=== PATIENT | female | born 2000 | race Two or more races ===

== ENCOUNTER 2019-08-20 12:18 | Emergency (ER) | payer MEDICAID ==
[~2019-08-20] VITALS: Ht 154.9 cm; Wt 96.0 kg
[~2019-08-20 12:18] MED LIST: NO HOME MEDS; PSEU120T84 PO
[2019-08-20 13:04] LABS: BASOPHILS # (AUTO) 0.1 X10'3 (0-0.2); BASOPHILS % (AUTO) 0.9 % (0-1); EOSINOPHILS # (AUTO) 0.1 X10'3 (0-0.9); EOSINOPHILS % (AUTO) 1.1 % (0-6); HEMATOCRIT 43.4 % (35.0-45.0); HEMOGLOBIN 14.8 g/dl (12.0-16.0); LYMPHOCYTES # (AUTO) 2.7 X10'3 (1.1-4.8); LYMPHOCYTES % (AUTO) 31.6 % (21-51); MEAN CORPUSCULAR HEMOGLOBIN 28.9 PG (27.0-31.0); MEAN CORPUSCULAR VOLUME 85.1 FL (78-98); MEAN PLATELET VOLUME 7.3 FL (7.4-10.4); MONOCYTES # (AUTO) 0.5 X10'3 (0-0.9); MONOCYTES % (AUTO) 5.6 % (2-12); NEUTROPHILS # (AUTO) 5.3 X10'3 (1.8-7.7); NEUTROPHILS % (AUTO) 60.8 % (42-75); PLATELET COUNT 321 X10'3 (140-440); RED CELL DISTRIBUTION WIDTH 13.3 % (11.5-14.5); WHITE BLOOD COUNT 8.7 X10'3 (4.5-11.0)
[2019-08-20 13:19] LABS: ALANINE AMINOTRANSFERASE 87 U/L (12-78); ALBUMIN 3.7 G/DL (3.4-5.0); ALBUMIN/GLOBULIN RATIO 0.8 (1.1-1.5); ALKALINE PHOSPHATASE 78 IU/L (20-180); ANION GAP 8 (8-16); ASPARTATE AMINO TRANSFERASE 48 U/L (10-37); BILIRUBIN,TOTAL 0.3 MG/DL (0.1-1.0); BLOOD UREA NITROGEN 8 MG/DL (7-18); BUN/CREATININE RATIO 13.1 (6.6-38.0); CHLORIDE 104 MMOL/L (99-107); CREATININE 0.61 MG/DL (0.40-0.90); GLUCOSE 132 MG/DL (70-104); POTASSIUM 4.4 MMOL/L (3.5-5.1); SODIUM 140 MMOL/L (135-145); TOTAL CARBON DIOXIDE 28.5 MMOL/L (24-32); TOTAL PROTEIN 8.5 G/DL (6.4-8.2); eGFR > 90 ML/MIN
[2019-08-20 13:25] LABS: CLARITY,URINE SLIGHTLY CLOUDY (Clear); COLOR,URINE YELLOW (Yellow); GLUCOSE, URINE NEGATIVE (Neg); KETONES,URINE NEGATIVE (Neg); LEUKOCYTE ESTERASE ,URINE NEGATIVE (Neg); NITRITES, URINE NEGATIVE (Neg); OCCULT BLOOD,URINE NEGATIVE (Neg); PROTEIN,URINE NEGATIVE (Neg); URINE HCG NEGATIVE (NEG); UROBILINOGEN,URINE 0.2 E.U/dL (0.2-1.0)
[2019-08-20 13:26] LABS: UA COLLECTION TYPE CLN CATCH MIDSTREAM
[2019-08-20 13:40] LABS: BACTERIA,URINE 2+ /HPF (Neg); MUCUS STRANDS FEW /LPF (Neg); RBC,URINE NONE SEEN /HPF (0-2); SQUAMOUS EPITHELIAL CELL,UR MODERATE /LPF (FEW); WBC,URINE 0-4 /HPF (0-4)
[2019-08-20] MEDS ORDERED: ONDA4TAB12 PO (14:39)
[2019-08-20] MEDS ORDERED: ondansetron 4mg rapidly disintigrating tab PO ONE (14:40)
[2019-08-20 14:54] VITALS: BP 104/56
== END 2019-08-20 14:56 | disposition home or self-care (01) ==
LOC: ER 12:19
DX: R11.2 Nausea with vomiting, unspecified (principal); R19.7 Diarrhea, unspecified; R10.33 Periumbilical pain; E66.9 Obesity, unspecified
CPT/HCPCS: 36415; 80053; 81001; 81025; 85025; 99283

== ENCOUNTER 2019-09-18 12:30 | Emergency (ER) | payer MEDICAID ==
[~2019-09-18] VITALS: Ht 154.9 cm; Wt 97.7 kg
[~2019-09-18 12:30] MED LIST changes: +ONDA4TAB12 PO
[2019-09-18] MEDS ORDERED: ibuprofen tablet 400 MG TABLET PO ONE (14:45)
[2019-09-18 15:06] LABS: CLARITY,URINE SLIGHTLY CLOUDY (Clear); COLOR,URINE YELLOW (Yellow); GLUCOSE, URINE NEGATIVE (Neg); KETONES,URINE NEGATIVE (Neg); LEUKOCYTE ESTERASE ,URINE NEGATIVE (Neg); NITRITES, URINE NEGATIVE (Neg); OCCULT BLOOD,URINE TRACE-LYSED (Neg); PH,URINE 5.5 (4.8-8.0); PROTEIN,URINE NEGATIVE (Neg); UROBILINOGEN,URINE 0.2 E.U/dL (0.2-1.0)
[2019-09-18 15:07] LABS: URINE HCG NEGATIVE (NEG)
[2019-09-18 15:09] LABS: UA COLLECTION TYPE CLN CATCH MIDSTREAM
[2019-09-18 15:16] LABS: BACTERIA,URINE 4+ /HPF (Neg); MUCUS STRANDS FEW /LPF (Neg); RBC,URINE 0-2 /HPF (0-2); SQUAMOUS EPITHELIAL CELL,UR MANY /LPF (FEW); WBC,URINE 0-4 /HPF (0-4)
[2019-09-18 15:19] LABS: BASOPHILS # (AUTO) 0.1 X10'3 (0-0.2); EOSINOPHILS # (AUTO) 0.1 X10'3 (0-0.9); EOSINOPHILS % (AUTO) 0.9 % (0-6); HEMATOCRIT 42.7 % (35.0-45.0); HEMOGLOBIN 14.7 g/dl (12.0-16.0); LYMPHOCYTES # (AUTO) 2.8 X10'3 (1.1-4.8); LYMPHOCYTES % (AUTO) 27.6 % (21-51); MEAN CORPUSCULAR HEMOGLOBIN 28.9 PG (27.0-31.0); MEAN CORPUSCULAR HGB CONC 34.5 g/dL (33.0-36.5); MONOCYTES # (AUTO) 0.5 X10'3 (0-0.9); MONOCYTES % (AUTO) 4.9 % (2-12); NEUTROPHILS # (AUTO) 6.5 X10'3 (1.8-7.7); NEUTROPHILS % (AUTO) 65.6 % (42-75); PLATELET COUNT 333 X10'3 (140-440); RED BLOOD COUNT 5.09 X10'6 (4.20-5.60); RED CELL DISTRIBUTION WIDTH 12.9 % (11.5-14.5)
[2019-09-18 15:34] LABS: ALANINE AMINOTRANSFERASE 76 U/L (12-78); ALBUMIN 3.7 G/DL (3.4-5.0); ALBUMIN/GLOBULIN RATIO 0.7 (1.1-1.5); ALKALINE PHOSPHATASE 80 IU/L (20-180); ANION GAP 8 (8-16); ASPARTATE AMINO TRANSFERASE 38 U/L (10-37); BILIRUBIN,TOTAL 0.6 MG/DL (0.1-1.0); BLOOD UREA NITROGEN 9 MG/DL (7-18); BUN/CREATININE RATIO 13.6 (6.6-38.0); CHLORIDE 105 MMOL/L (99-107); CREATININE 0.66 MG/DL (0.40-0.90); GLUCOSE 87 MG/DL (70-104); SODIUM 139 MMOL/L (135-145); TOTAL PROTEIN 8.7 G/DL (6.4-8.2); eGFR > 90 ML/MIN
[2019-09-18 15:50] LABS: D-DIMER < 0.19 MG/L FEU (0-0.50)
[2019-09-18 16:12] VITALS: BP 116/76
== END 2019-09-18 16:14 | disposition home or self-care (01) ==
LOC: ER 12:31
DX: R53.1 Weakness (principal); B34.9 Viral infection, unspecified; R94.31 Abnormal electrocardiogram [ECG] [EKG]; R42 Dizziness and giddiness
CPT/HCPCS: 36415; 80053; 81001; 81025; 84484; 85025; 85379; 93005; 99284

== ENCOUNTER 2019-09-24 18:54 | Emergency (ER) | payer MEDICAID ==
[~2019-09-24] VITALS: Ht 154.9 cm; Wt 90.0 kg
[2019-09-24 19:48] LABS: BASOPHILS # (AUTO) 0.1 X10'3 (0-0.2); BASOPHILS % (AUTO) 0.6 % (0-1); EOSINOPHILS # (AUTO) 0.1 X10'3 (0-0.9); EOSINOPHILS % (AUTO) 0.9 % (0-6); HEMATOCRIT 44.3 % (35.0-45.0); HEMOGLOBIN 15.3 g/dl (12.0-16.0); LYMPHOCYTES # (AUTO) 3.2 X10'3 (1.1-4.8); LYMPHOCYTES % (AUTO) 28.7 % (21-51); MEAN CORPUSCULAR HEMOGLOBIN 28.8 PG (27.0-31.0); MEAN CORPUSCULAR HGB CONC 34.6 g/dL (33.0-36.5); MEAN CORPUSCULAR VOLUME 83.2 FL (78-98); MEAN PLATELET VOLUME 7.3 FL (7.4-10.4); MONOCYTES # (AUTO) 0.6 X10'3 (0-0.9); MONOCYTES % (AUTO) 5.2 % (2-12); NEUTROPHILS # (AUTO) 7.3 X10'3 (1.8-7.7); NEUTROPHILS % (AUTO) 64.6 % (42-75); PLATELET COUNT 368 X10'3 (140-440); RED BLOOD COUNT 5.32 X10'6 (4.20-5.60); RED CELL DISTRIBUTION WIDTH 12.9 % (11.5-14.5); WHITE BLOOD COUNT 11.3 X10'3 (4.5-11.0)
[2019-09-24 20:02] LABS: ALANINE AMINOTRANSFERASE 99 U/L (12-78); ALBUMIN 4.1 G/DL (3.4-5.0); ALBUMIN/GLOBULIN RATIO 0.8 (1.1-1.5); ALKALINE PHOSPHATASE 81 IU/L (20-180); ANION GAP 8 (8-16); ASPARTATE AMINO TRANSFERASE 54 U/L (10-37); BILIRUBIN,TOTAL 0.4 MG/DL (0.1-1.0); BLOOD UREA NITROGEN 11 MG/DL (7-18); BUN/CREATININE RATIO 14.7 (6.6-38.0); CALCIUM 9.7 MG/DL (8.5-10.1); CHLORIDE 104 MMOL/L (99-107); CREATININE 0.75 MG/DL (0.40-0.90); GLUCOSE 90 MG/DL (70-104); POTASSIUM 4.6 MMOL/L (3.5-5.1); SODIUM 141 MMOL/L (135-145); TOTAL PROTEIN 9.3 G/DL (6.4-8.2); eGFR > 90 ML/MIN
[2019-09-24] MEDS ORDERED: albuterol 2.5 MG/3 ML nebule NEB ONE (20:30)
[2019-09-24] MEDS ORDERED: NAPR-56 PO (20:34)
[2019-09-24 20:56] VITALS: BP 137/80
== END 2019-09-24 20:58 | disposition home or self-care (01) ==
LOC: ER 18:55
DX: J45.909 Unspecified asthma, uncomplicated (principal); R07.89 Other chest pain; Z79.899 Other long term (current) drug therapy
CPT/HCPCS: 36415; 71045; 80053; 84484; 85025; 93005; 94640; 94760; 99284

== ENCOUNTER 2019-10-19 16:03 | Emergency (ER) | payer MEDICAID ==
[~2019-10-19] VITALS: Ht 154.9 cm; Wt 86.0 kg
[~2019-10-19 16:03] MED LIST changes: +NAPR-56 PO
[2019-10-19] MEDS ORDERED: IBUP-1984 PO (20:41)
[2019-10-19 21:08] LABS: COLOR,URINE YELLOW (Yellow); GLUCOSE, URINE NEGATIVE (Neg); KETONES,URINE TRACE mg/dl (Neg); LEUKOCYTE ESTERASE ,URINE NEGATIVE (Neg); NITRITES, URINE NEGATIVE (Neg); OCCULT BLOOD,URINE NEGATIVE (Neg); PH,URINE 5.5 (4.8-8.0); PROTEIN,URINE NEGATIVE (Neg); UROBILINOGEN,URINE 0.2 E.U/dL (0.2-1.0)
[2019-10-19 21:21] LABS: CLARITY,URINE SLIGHTLY CLOUDY (Clear); UA COLLECTION TYPE CLN CATCH MIDSTREAM
[2019-10-19 21:22] LABS: BACTERIA,URINE 3+ /HPF (Neg); MUCUS STRANDS MANY /LPF (Neg); RBC,URINE NONE SEEN /HPF (0-2); SQUAMOUS EPITHELIAL CELL,UR MANY /LPF (FEW); WBC,URINE 0-4 /HPF (0-4)
[2019-10-19 21:23] LABS: URINE HCG NEGATIVE (NEG)
[2019-10-19 21:49] VITALS: BP 126/65
== END 2019-10-19 20:35 | disposition home or self-care (01) ==
LOC: ER 16:04
DX: M94.0 Chondrocostal junction syndrome [Tietze] (principal); Z79.899 Other long term (current) drug therapy
CPT/HCPCS: 81001; 81025; 93005; 99284

== ENCOUNTER 2020-01-24 18:48 | Emergency (ER) | payer MEDICAID, OTHER ==
[~2020-01-24] VITALS: Ht 154.9 cm; Wt 90.0 kg
[~2020-01-24 18:48] MED LIST changes: -NAPR-56 PO
[2020-01-24 18:49] VITALS: BP 132/82
[2020-01-24] MEDS ORDERED: IBUP-1984 PO (19:12)
== END 2020-01-24 19:30 | disposition home or self-care (01) ==
LOC: ER 18:48
DX: R07.81 Pleurodynia (principal); Z79.899 Other long term (current) drug therapy; W51.XXXA Accidental striking against or bumped into by another person, initial encounter; Y93.89 Activity, other specified; Y92.89 Other specified places as the place of occurrence of the external cause; Y99.8 Other external cause status
CPT/HCPCS: 99282

== ENCOUNTER 2020-05-31 11:23 | Day surgery (SDC) | payer MEDICAID ==
--- NOTE | 2020-05-27 10:16 | NUR ---
VERBAL COVID SCREEN DURING PHONE PRE-OP PER PT SHE HAS NO S/S OF COVID
[~2020-05-31] VITALS: Ht 154.9 cm; Wt 103.9 kg
[2020-05-31] VITALS (10 sets, daily range): BP systolic 102–133; BP diastolic 67–93
[~2020-05-31 11:23] MED LIST changes: +ACET-2615 PO; +IBUP-1984 PO; +MSC15T PO; -NO HOME MEDS; -ONDA4TAB12 PO; -PSEU120T84 PO; +SENN-263 PO; +ceFAZolin 2gm in dextrose, iso 50 ML IV ONE; +famotidine 20mg tablet PO ONE; +ringers solution, lacted 1,000 ML IV SCH; +vancomycin 1,500 MG in NS 300ml IV soln IV ONE
[2020-05-31 12:57] LABS: BASOPHILS # (AUTO) 0.1 X10'3 (0-0.2); BASOPHILS % (AUTO) 0.5 % (0-1); EOSINOPHILS # (AUTO) 0.1 X10'3 (0-0.9); EOSINOPHILS % (AUTO) 0.9 % (0-6); HEMATOCRIT 44.2 % (35.0-45.0); HEMOGLOBIN 14.7 g/dl (12.0-16.0); LYMPHOCYTES # (AUTO) 2.7 X10'3 (1.1-4.8); LYMPHOCYTES % (AUTO) 24.6 % (21-51); MEAN CORPUSCULAR HEMOGLOBIN 27.7 PG (27.0-31.0); MEAN CORPUSCULAR HGB CONC 33.3 g/dL (33.0-36.5); MEAN CORPUSCULAR VOLUME 83.2 FL (78-98); MEAN PLATELET VOLUME 7.2 FL (7.4-10.4); MONOCYTES # (AUTO) 0.6 X10'3 (0-0.9); MONOCYTES % (AUTO) 5.7 % (2-12); NEUTROPHILS # (AUTO) 7.4 X10'3 (1.8-7.7); NEUTROPHILS % (AUTO) 68.3 % (42-75); PLATELET COUNT 338 X10'3 (140-440); RED BLOOD COUNT 5.32 X10'6 (4.20-5.60); RED CELL DISTRIBUTION WIDTH 13.4 % (11.5-14.5); WHITE BLOOD COUNT 10.8 X10'3 (4.5-11.0)
[2020-05-31 13:07] LABS: HCG SERUM QL NEGATIVE
[2020-05-31] MEDS ORDERED: sevoflurane 250ml liquid IH ONE (13:08)
[2020-05-31 13:09] LABS: ALANINE AMINOTRANSFERASE 126 U/L (12-78); ALBUMIN 3.8 G/DL (3.4-5.0); ALBUMIN/GLOBULIN RATIO 0.7 (1.1-1.5); ALKALINE PHOSPHATASE 76 IU/L (20-180); ANION GAP 12 (8-16); ASPARTATE AMINO TRANSFERASE 83 U/L (10-37); BILIRUBIN,TOTAL 0.5 MG/DL (0.1-1.0); BLOOD UREA NITROGEN 7 MG/DL (7-18); BUN/CREATININE RATIO 11.9 (6.6-38.0); CALCIUM 9.4 MG/DL (8.5-10.1); CHLORIDE 103 MMOL/L (99-107); CREATININE 0.59 MG/DL (0.40-0.90); GLUCOSE 112 MG/DL (70-104); SODIUM 138 MMOL/L (135-145); TOTAL CARBON DIOXIDE 23.2 MMOL/L (24-32); TOTAL PROTEIN 9.1 G/DL (6.4-8.2); eGFR > 90 ML/MIN
[2020-05-31] MEDS ORDERED: fentaNYL/PF 50MCG/1 ML 2ML syringe ONE ×3 (13:12→14:06)
[2020-05-31] MEDS ORDERED: MIDAZolam 5mg/5ml vial ONE (13:34)
[2020-05-31] MEDS ORDERED: ketamine 50mg/5ml syringe ONE (14:06)
[2020-05-31] MEDS ORDERED: proCHLORperazine 10 MG/2 ml inj IV PRN (14:10)
[2020-05-31] MEDS ORDERED: ringers solution, lacted 1,000 ML IV SCH (14:10)
[2020-05-31] MEDS ORDERED: meperidine/PF 25mg/ml syringe IV PRN ×2 (14:10)
[2020-05-31] MEDS ORDERED: morphine 2 MG/ML inj. syringe IV PRN (14:10)
[2020-05-31] MEDS ORDERED: ondansetron/PF 4mg/2ml inj IV PRN (14:10)
[2020-05-31] MEDS ORDERED: morphine 4 MG/ML inj SYRINge IV PRN (14:10)
[2020-05-31] MEDS ORDERED: LIDOcaine 2% (20mg/ml) 5ml vial ONE (14:39)
[2020-05-31] MEDS ORDERED: propofol inj 20 ML IV ONE (14:39)
[2020-05-31] MEDS ORDERED: ondansetron/PF 4mg/2ml inj ONE (14:40)
[2020-05-31] MEDS ORDERED: dexamethasone sod phosphate 4mg/ml inj. ONE (14:40)
[2020-05-31] MEDS ORDERED: ROPIVAcaine 0.5% (5mg/ml) 30ml vial ONE (14:40)
--- NOTE | 2020-05-31 14:45 | NUR ---
Received from OR via , accompanied by Anesthesiologist DR ERVIN and report given by Anesthesiolgist.AWAKENS TO VOICE. VITALS STABLE. SPLINT DI. FINGERS WARM AND PINK.
[2020-05-31] MEDS ORDERED: acetaminophen 1,000mg/100ml IV 100 ML IV ONE (14:50)
[2020-05-31] MEDS: meperidine/PF 25mg/ml syringe IV PRN ×4 (14:54→15:38)
[2020-05-31] MEDS ORDERED: ketorolac trometh. 30mg/ml inj. IV ONE (15:35)
--- NOTE | 2020-05-31 16:35 | NUR ---
AWAKE AND ORIENTED. VITALS STABLE. SPLINT DI. STATES PAIN IMPROVING. HOME WITH HER SISTER AT THIS TIME.
== END 2020-05-31 16:35 | disposition home or self-care (01) ==
LOC: PAS 11:23
PROVIDERS: ATTEND Orthopaedic Surgery
DX: S52.251A Displaced comminuted fracture of shaft of ulna, right arm, initial encounter for closed fracture (principal); S52.351A Displaced comminuted fracture of shaft of radius, right arm, initial encounter for closed fracture; G89.18 Other acute postprocedural pain; Z72.89 Other problems related to lifestyle; E66.9 Obesity, unspecified; Z68.39 Body mass index [BMI] 39.0-39.9, adult; Z79.899 Other long term (current) drug therapy; W22.10XA Striking against or struck by unspecified automobile airbag, initial encounter; Y93.89 Activity, other specified; Y92.810 Car as the place of occurrence of the external cause; Y99.8 Other external cause status
CPT/HCPCS: 25575; 36415; 64417; 73090; 76000; 76942; 80053; 84703; 85025; A6222; C1713; J0131; J1100; J1885; J2001; J2175; J2250; J2405; J2704; J3010; J3370; J7040; J7120; A4618; A6449; A7000; J2795

== ENCOUNTER 2020-11-30 18:58 | Emergency (ER) | payer MEDICAID ==
[~2020-11-30] VITALS: Ht 154.9 cm; Wt 88.6 kg
[~2020-11-30 18:58] MED LIST changes: -ceFAZolin 2gm in dextrose, iso 50 ML IV ONE; -famotidine 20mg tablet PO ONE; -ringers solution, lacted 1,000 ML IV SCH; -vancomycin 1,500 MG in NS 300ml IV soln IV ONE
[2020-11-30 19:21] VITALS: BP 112/72
[2020-11-30] MEDS ORDERED: ALBU6.7H9 INH (19:32)
== END 2020-11-30 19:55 | disposition home or self-care (01) ==
LOC: ER 18:58
DX: J06.9 Acute upper respiratory infection, unspecified (principal); Z20.822 Contact with and (suspected) exposure to COVID-19; Z79.899 Other long term (current) drug therapy
CPT/HCPCS: 36415; 87635; 99283

== ENCOUNTER 2021-08-12 13:26 | Emergency (ER) | payer MEDICAID ==
[~2021-08-12] VITALS: Ht 157.5 cm; Wt 104.7 kg
[~2021-08-12 13:26] MED LIST changes: +ALBU6.7H9 INH
[2021-08-12 13:45] VITALS: BP 138/85
== END 2021-08-12 21:19 | disposition left against medical advice (07) ==
LOC: ER 13:27
DX: H92.02 Otalgia, left ear (principal); Z53.21 Procedure and treatment not carried out due to patient leaving prior to being seen by health care provider

== ENCOUNTER 2021-12-21 20:32 | Emergency (ER) | payer MEDICAID ==
[~2021-12-21] VITALS: Ht 162.6 cm; Wt 89.5 kg
[2021-12-21 20:35] VITALS: BP 122/77
[2021-12-21] MEDS ORDERED: ALBU8HFA PO (22:19)
== END 2021-12-21 22:34 | disposition home or self-care (01) ==
LOC: ER 20:33
DX: J20.9 Acute bronchitis, unspecified (principal); Z20.822 Contact with and (suspected) exposure to COVID-19; Z79.899 Other long term (current) drug therapy
CPT/HCPCS: 87635; 99283; C9803

== ENCOUNTER 2022-01-01 02:00 | Emergency (ER) | payer MEDICAID ==
[~2022-01-01] VITALS: Ht 157.5 cm; Wt 95.5 kg
[~2022-01-01 02:00] MED LIST changes: +ALBU8HFA PO
[2022-01-01] MEDS ORDERED: CIPR10DR LEFT EAR ×2 (07:17→12:27)
[2022-01-01 07:31] VITALS: BP 137/92
== END 2022-01-01 07:33 | disposition home or self-care (01) ==
LOC: ER 02:00
DX: H60.92 Unspecified otitis externa, left ear (principal); H92.02 Otalgia, left ear; Z79.2 Long term (current) use of antibiotics; Z79.899 Other long term (current) drug therapy
CPT/HCPCS: 99283

== ENCOUNTER 2022-03-04 20:31 | Emergency (ER) | payer MEDICAID ==
[~2022-03-04] VITALS: Ht 154.9 cm; Wt 99.5 kg
[~2022-03-04 20:31] MED LIST changes: -ALBU8HFA PO
[2022-03-04 21:10] LABS: URINE HCG NEGATIVE (NEG)
[2022-03-04] MEDS ORDERED: ondansetron/PF 4mg/2ml inj IV ONE (21:15)
[2022-03-04] MEDS ORDERED: normal saline 1000ML IV soln IVB ONE (21:15)
[2022-03-04] MEDS ORDERED: pantoprazole 40 MG vial IV ONE (21:15)
[2022-03-04 21:16] LABS: BASOPHILS # (AUTO) 0.1 X10'3 (0-0.2); BASOPHILS % (AUTO) 0.7 % (0-1); EOSINOPHILS # (AUTO) 0.1 X10'3 (0-0.9); HEMATOCRIT 39.9 % (35.0-45.0); HEMOGLOBIN 13.1 g/dl (12.0-16.0); LYMPHOCYTES # (AUTO) 3.8 X10'3 (1.1-4.8); LYMPHOCYTES % (AUTO) 32.5 % (21-51); MEAN CORPUSCULAR HEMOGLOBIN 24.4 PG (27.0-31.0); MEAN CORPUSCULAR HGB CONC 32.8 g/dL (33.0-36.5); MEAN CORPUSCULAR VOLUME 74.5 FL (78-98); MONOCYTES # (AUTO) 0.7 X10'3 (0-0.9); MONOCYTES % (AUTO) 6.3 % (2-12); NEUTROPHILS # (AUTO) 6.9 X10'3 (1.8-7.7); NEUTROPHILS % (AUTO) 59.5 % (42-75); PLATELET COUNT 452 X10'3 (140-440); RED BLOOD COUNT 5.35 X10'6 (4.20-5.60); RED CELL DISTRIBUTION WIDTH 15.5 % (11.5-14.5); WHITE BLOOD COUNT 11.6 X10'3 (4.5-11.0)
[2022-03-04 21:17] LABS: COLOR,URINE YELLOW (Yellow); GLUCOSE, URINE NEGATIVE (Neg); KETONES,URINE NEGATIVE (Neg); LEUKOCYTE ESTERASE ,URINE MODERATE (Neg); NITRITES, URINE NEGATIVE (Neg); OCCULT BLOOD,URINE MODERATE (Neg); PH,URINE 5.5 (4.8-8.0); PROTEIN,URINE NEGATIVE (Neg); UROBILINOGEN,URINE 0.2 E.U/dL (0.2-1.0)
[2022-03-04 21:24] LABS: ALANINE AMINOTRANSFERASE 72 U/L (12-78); ALBUMIN 3.6 G/DL (3.4-5.0); ALBUMIN/GLOBULIN RATIO 0.7 (1.1-1.5); ALKALINE PHOSPHATASE 81 IU/L (46-116); ANION GAP 11 (8-16); ASPARTATE AMINO TRANSFERASE 46 U/L (10-37); BILIRUBIN,TOTAL 0.4 MG/DL (0.1-1.0); BLOOD UREA NITROGEN 6 MG/DL (7-18); BUN/CREATININE RATIO 8.7 (6.6-38.0); CALCIUM 8.7 MG/DL (8.5-10.1); CHLORIDE 104 MMOL/L (99-107); CREATININE 0.69 MG/DL (0.40-0.90); GLUCOSE 85 MG/DL (70-104); LIPASE 104 U/L (73-393); POTASSIUM 3.7 MMOL/L (3.5-5.1); SODIUM 139 MMOL/L (135-145); TOTAL CARBON DIOXIDE 24.3 MMOL/L (24-32); TOTAL PROTEIN 8.7 G/DL (6.4-8.2); eGFR > 90 ML/MIN
[2022-03-04 21:28] LABS: CLARITY,URINE SLIGHTLY CLOUDY (Clear); UA COLLECTION TYPE CLN CATCH MIDSTREAM
[2022-03-04 21:29] LABS: BACTERIA,URINE FEW /HPF (Neg); SQUAMOUS EPITHELIAL CELL,UR MODERATE /LPF (FEW); WBC,URINE 20-30 /HPF (0-4)
[2022-03-04] MEDS ORDERED: pantoprazole 40MG/NS 100ML BAG 100 ML IV SCH (21:45)
[2022-03-04] MEDS ORDERED: PANT-47 PO (21:57)
[2022-03-04] MEDS ORDERED: CEPH-585 PO (21:57)
[2022-03-04 22:18] VITALS: BP 149/86
== END 2022-03-04 22:22 | disposition home or self-care (01) ==
LOC: ER 20:32
DX: N39.0 Urinary tract infection, site not specified (principal); Z79.899 Other long term (current) drug therapy
CPT/HCPCS: 36415; 80053; 81001; 81025; 83690; 85025; 87088; 96374; 96375; 99284; C9113; J2405; J7030

== ENCOUNTER 2022-03-19 13:35 | Emergency (ER) | payer MEDICAID ==
[~2022-03-19] VITALS: Ht 154.9 cm; Wt 93.2 kg
[~2022-03-19 13:35] MED LIST changes: +CEPH-585 PO; +PANT-47 PO
[2022-03-19 14:27] LABS: CLARITY,URINE CLOUDY (Clear); COLOR,URINE YELLOW (Yellow); GLUCOSE, URINE NEGATIVE (Neg); KETONES,URINE NEGATIVE (Neg); LEUKOCYTE ESTERASE ,URINE SMALL (Neg); NITRITES, URINE NEGATIVE (Neg); OCCULT BLOOD,URINE LARGE (Neg); PH,URINE 5.5 (4.8-8.0); PROTEIN,URINE NEGATIVE (Neg); URINE HCG NEGATIVE (NEG); UROBILINOGEN,URINE 0.2 E.U/dL (0.2-1.0)
[2022-03-19 14:28] LABS: BASOPHILS # (AUTO) 0.1 X10'3 (0-0.2); BASOPHILS % (AUTO) 0.7 % (0-1); EOSINOPHILS # (AUTO) 0.1 X10'3 (0-0.9); EOSINOPHILS % (AUTO) 0.4 % (0-6); HEMATOCRIT 40.1 % (35.0-45.0); HEMOGLOBIN 13.2 g/dl (12.0-16.0); LYMPHOCYTES # (AUTO) 1.9 X10'3 (1.1-4.8); LYMPHOCYTES % (AUTO) 14.4 % (21-51); MEAN CORPUSCULAR HEMOGLOBIN 24.6 PG (27.0-31.0); MEAN CORPUSCULAR VOLUME 74.4 FL (78-98); MEAN PLATELET VOLUME 6.9 FL (7.4-10.4); MONOCYTES # (AUTO) 0.6 X10'3 (0-0.9); MONOCYTES % (AUTO) 4.6 % (2-12); NEUTROPHILS # (AUTO) 10.6 X10'3 (1.8-7.7); NEUTROPHILS % (AUTO) 79.9 % (42-75); PLATELET COUNT 437 X10'3 (140-440); RED BLOOD COUNT 5.38 X10'6 (4.20-5.60); RED CELL DISTRIBUTION WIDTH 15.7 % (11.5-14.5); WHITE BLOOD COUNT 13.3 X10'3 (4.5-11.0)
[2022-03-19 14:28] LABS: UA COLLECTION TYPE CLN CATCH MIDSTREAM
[2022-03-19 14:38] LABS: SQUAMOUS EPITHELIAL CELL,UR MANY /LPF (FEW)
[2022-03-19 14:39] LABS: BACTERIA,URINE 2+ /HPF (Neg); MUCUS STRANDS MANY /LPF (Neg); RBC,URINE 0-2 /HPF (0-2)
--- NOTE | 2022-03-19 14:42 | NUR ---
urine rejected for culture
[2022-03-19 14:43] LABS: ALANINE AMINOTRANSFERASE 58 U/L (12-78); ALBUMIN 3.5 G/DL (3.4-5.0); ALBUMIN/GLOBULIN RATIO 0.7 (1.1-1.5); ALKALINE PHOSPHATASE 82 IU/L (46-116); ANION GAP 10 (8-16); ASPARTATE AMINO TRANSFERASE 34 U/L (10-37); BILIRUBIN,TOTAL 0.5 MG/DL (0.1-1.0); BLOOD UREA NITROGEN 8 MG/DL (7-18); BUN/CREATININE RATIO 10.1 (6.6-38.0); CALCIUM 9.1 MG/DL (8.5-10.1); CHLORIDE 106 MMOL/L (99-107); CREATININE 0.79 MG/DL (0.40-0.90); GLUCOSE 191 MG/DL (70-104); LIPASE 125 U/L (73-393); SODIUM 142 MMOL/L (135-145); TOTAL CARBON DIOXIDE 25.8 MMOL/L (24-32); TOTAL PROTEIN 8.7 G/DL (6.4-8.2); eGFR > 90 ML/MIN
[2022-03-19] MEDS ORDERED: famotidine 20mg tablet PO ONE (20:30)
[2022-03-19] MEDS ORDERED: mag hydrox/Alum hydrox/simeth 30ml oral suspension PO ONE (20:30)
[2022-03-19] MEDS ORDERED: sulfamethoxazole/trimethoprim DS (800/160mg) tablet PO ONE (20:30)
[2022-03-19] MEDS ORDERED: LIDOcaine Viscous 15ml cup MM ONE (20:30)
[2022-03-19] MEDS ORDERED: FAMO40TA58 PO (22:21)
[2022-03-19] MEDS ORDERED: SULF1TAB49 PO (22:21)
[2022-03-19 22:29] VITALS: BP 123/89
== END 2022-03-19 22:31 | disposition home or self-care (01) ==
LOC: ER 13:36
DX: N39.0 Urinary tract infection, site not specified (principal); R10.30 Lower abdominal pain, unspecified; R07.89 Other chest pain; R10.12 Left upper quadrant pain; R10.13 Epigastric pain; Z79.2 Long term (current) use of antibiotics; Z79.899 Other long term (current) drug therapy
CPT/HCPCS: 36415; 71046; 80053; 81001; 81025; 83690; 84484; 85025; 93005; 99285

== ENCOUNTER 2022-05-28 17:51 | Emergency (ER) | payer MEDICAID ==
[~2022-05-28] VITALS: Ht 154.9 cm; Wt 98.2 kg
[~2022-05-28 17:51] MED LIST changes: +ALBU6.7H14 INH; -ALBU6.7H9 INH; +FAMO40TA58 PO
[2022-05-28] MEDS ORDERED: acetaminophen 325mg tablet PO ONE (19:55)
[2022-05-28] MEDS ORDERED: ibuprofen tablet 400 MG TABLET PO ONE (19:55)
[2022-05-28 20:11] LABS: HEMOGLOBIN 12.3 g/dl (12.0-16.0)
[2022-05-28 20:13] LABS: BASOPHILS # (AUTO) 0.1 X10'3 (0-0.2); BASOPHILS % (AUTO) 0.7 % (0-1); EOSINOPHILS # (AUTO) 0.1 X10'3 (0-0.9); EOSINOPHILS % (AUTO) 0.9 % (0-6); HEMATOCRIT 37.6 % (35.0-45.0); LYMPHOCYTES # (AUTO) 2.3 X10'3 (1.1-4.8); LYMPHOCYTES % (AUTO) 22.9 % (21-51); MEAN CORPUSCULAR HEMOGLOBIN 24.2 PG (27.0-31.0); MEAN CORPUSCULAR HGB CONC 32.8 g/dL (33.0-36.5); MEAN CORPUSCULAR VOLUME 73.7 FL (78-98); MEAN PLATELET VOLUME 6.6 FL (7.4-10.4); MONOCYTES # (AUTO) 0.6 X10'3 (0-0.9); MONOCYTES % (AUTO) 5.8 % (2-12); NEUTROPHILS # (AUTO) 6.9 X10'3 (1.8-7.7); NEUTROPHILS % (AUTO) 69.7 % (42-75); PLATELET COUNT 433 X10'3 (140-440); RED CELL DISTRIBUTION WIDTH 15.4 % (11.5-14.5); WHITE BLOOD COUNT 9.9 X10'3 (4.5-11.0)
[2022-05-28 20:18] LABS: URINE HCG NEGATIVE (NEG)
[2022-05-28 20:19] LABS: CLARITY,URINE SLIGHTLY CLOUDY (Clear); COLOR,URINE YELLOW (Yellow); GLUCOSE, URINE NEGATIVE (Neg); KETONES,URINE TRACE mg/dl (Neg); LEUKOCYTE ESTERASE ,URINE LARGE (Neg); NITRITES, URINE NEGATIVE (Neg); OCCULT BLOOD,URINE TRACE-INTACT (Neg); PROTEIN,URINE NEGATIVE (Neg); UROBILINOGEN,URINE 0.2 E.U/dL (0.2-1.0)
[2022-05-28 20:23] LABS: UA COLLECTION TYPE CLN CATCH MIDSTREAM
[2022-05-28 20:25] LABS: ALANINE AMINOTRANSFERASE 71 U/L (12-78); ALBUMIN 3.5 G/DL (3.4-5.0); ALBUMIN/GLOBULIN RATIO 0.7 (1.1-1.5); ALKALINE PHOSPHATASE 85 IU/L (46-116); ANION GAP 10 (8-16); ASPARTATE AMINO TRANSFERASE 43 U/L (10-37); BILIRUBIN,TOTAL 0.5 MG/DL (0.1-1.0); BLOOD UREA NITROGEN 6 MG/DL (7-18); BUN/CREATININE RATIO 9.1 (6.6-38.0); CALCIUM 8.9 MG/DL (8.5-10.1); CHLORIDE 102 MMOL/L (99-107); CREATININE 0.66 MG/DL (0.40-0.90); GLUCOSE 81 MG/DL (70-104); LIPASE 92 U/L (73-393); SODIUM 140 MMOL/L (135-145); TOTAL CARBON DIOXIDE 27.6 MMOL/L (24-32); TOTAL PROTEIN 8.7 G/DL (6.4-8.2); eGFR > 90 ML/MIN
[2022-05-28 20:26] LABS: BACTERIA,URINE 2+ /HPF (Neg); RBC,URINE 0-2 /HPF (0-2); SQUAMOUS EPITHELIAL CELL,UR MANY /LPF (FEW)
[2022-05-28] MEDS ORDERED: ciprofloxacin 250mg tablet PO ONE (20:45)
[2022-05-28] MEDS ORDERED: CIPR-202 PO (20:45)
[2022-05-28 21:23] VITALS: BP 122/74
== END 2022-05-28 21:24 | disposition home or self-care (01) ==
LOC: ER 17:51
DX: N39.0 Urinary tract infection, site not specified (principal); Z79.899 Other long term (current) drug therapy; Z79.2 Long term (current) use of antibiotics
CPT/HCPCS: 36415; 80053; 81001; 81025; 83690; 85025; 99284

== ENCOUNTER 2023-02-28 22:13 | Emergency (ER) | payer MEDICAID ==
[~2023-02-28] VITALS: Ht 154.9 cm; Wt 84.1 kg
[2023-02-28 22:44] LABS: BASOPHILS # (AUTO) 0.1 X10'3 (0-0.2); BASOPHILS % (AUTO) 0.8 % (0-1); EOSINOPHILS # (AUTO) 0.2 X10'3 (0-0.9); EOSINOPHILS % (AUTO) 1.2 % (0-6); HEMATOCRIT 40.7 % (35.0-45.0); HEMOGLOBIN 13.5 g/dl (12.0-16.0); LYMPHOCYTES # (AUTO) 3.9 X10'3 (1.1-4.8); LYMPHOCYTES % (AUTO) 31.5 % (21-51); MEAN CORPUSCULAR HEMOGLOBIN 25.7 PG (27.0-31.0); MEAN CORPUSCULAR HGB CONC 33.1 g/dL (33.0-36.5); MEAN CORPUSCULAR VOLUME 77.6 FL (78-98); MEAN PLATELET VOLUME 6.8 FL (7.4-10.4); MONOCYTES # (AUTO) 0.8 X10'3 (0-0.9); MONOCYTES % (AUTO) 6.5 % (2-12); NEUTROPHILS # (AUTO) 7.5 X10'3 (1.8-7.7); PLATELET COUNT 439 X10'3 (140-440); RED BLOOD COUNT 5.24 X10'6 (4.20-5.60); RED CELL DISTRIBUTION WIDTH 14.3 % (11.5-14.5); WHITE BLOOD COUNT 12.4 X10'3 (4.5-11.0)
[2023-02-28 22:55] LABS: ALANINE AMINOTRANSFERASE 56 U/L (12-78); ALBUMIN 3.7 G/DL (3.4-5.0); ALBUMIN/GLOBULIN RATIO 0.7 (1.1-1.5); ALKALINE PHOSPHATASE 91 IU/L (46-116); ANION GAP 9 (8-16); ASPARTATE AMINO TRANSFERASE 31 U/L (10-37); BILIRUBIN,TOTAL 0.3 MG/DL (0.1-1.0); BLOOD UREA NITROGEN 10 MG/DL (7-18); BUN/CREATININE RATIO 13.2 (10.0-20.0); CALCIUM 9.4 MG/DL (8.5-10.1); CHLORIDE 104 MMOL/L (99-107); CREATININE 0.76 MG/DL (0.40-0.90); GLUCOSE 119 MG/DL (70-104); LIPASE 156 U/L (73-393); POTASSIUM 3.9 MMOL/L (3.5-5.1); SODIUM 140 MMOL/L (135-145); TOTAL CARBON DIOXIDE 27.2 MMOL/L (24-32); TOTAL PROTEIN 8.9 G/DL (6.4-8.2); eGFR > 90 ML/MIN
[2023-02-28] MEDS ORDERED: NO HOME MEDS (22:56)
[2023-02-28] MEDS ORDERED: acetaminophen 325mg tablet PO ONE (23:30)
[2023-02-28] MEDS ORDERED: ibuprofen tablet 400 MG TABLET PO ONE (23:30)
[2023-02-28] MEDS ORDERED: ondansetron 4mg rapidly disintigrating tab PO ONE (23:30)
[2023-03-01] LABS: CLARITY,URINE SLIGHTLY CLOUDY (Clear); COLOR,URINE YELLOW (Yellow); GLUCOSE, URINE NEGATIVE (Neg); KETONES,URINE NEGATIVE (Neg); LEUKOCYTE ESTERASE ,URINE SMALL (Neg); NITRITES, URINE NEGATIVE (Neg); OCCULT BLOOD,URINE SMALL (Neg); PROTEIN,URINE NEGATIVE (Neg); URINE HCG NEGATIVE (NEG); UROBILINOGEN,URINE 0.2 E.U/dL (0.2-1.0)
[2023-03-01 00:04] LABS: UA COLLECTION TYPE CLN CATCH MIDSTREAM
[2023-03-01 00:06] LABS: WBC,URINE 30-50 /HPF (0-4)
[2023-03-01 00:08] LABS: BACTERIA,URINE 2+ /HPF (Neg); SQUAMOUS EPITHELIAL CELL,UR MANY /LPF (FEW)
[2023-03-01] MEDS ORDERED: CEPH250T PO (00:49)
[2023-03-01] MEDS ORDERED: cephalexin 250mg capsule PO ONE (00:50)
[2023-03-01 01:06] VITALS: BP 127/88
== END 2023-03-01 01:07 | disposition home or self-care (01) ==
LOC: ER 22:13
DX: N39.0 Urinary tract infection, site not specified (principal); Z79.899 Other long term (current) drug therapy
CPT/HCPCS: 36415; 80053; 81001; 81025; 83690; 84145; 85025; 99284; J7030; 81003

== ENCOUNTER 2025-03-15 16:08 | Emergency (ER) | payer MEDICAID ==
[~2025-03-15] VITALS: Ht 154.9 cm; Wt 93.2 kg
[~2025-03-15 16:08] MED LIST changes: -ACET-2615 PO; -ALBU6.7H14 INH; -CEPH-585 PO; -FAMO40TA58 PO; -IBUP-1984 PO; -MSC15T PO; +NO HOME MEDS; -PANT-47 PO; -SENN-263 PO
--- NOTE | 2025-03-15 18:15 | Physician Documentation ---
History of Present Illness ~ Chief Complaint: Sore Throat Stated Complaint: LUMP ON SIDE OF NECK/PUKE WITH SMALL BLOOD CLOTS Time Seen by MD: 17:56 Primary Medical Doctor: [facility] MD Persaud [facility] This is a 24-year-old female who presents with three days of worsening right- sided facial neck along with intermittent episodes of vomiting, patient reports an area of swelling in her right neck that is been present for the last two weeks, patient additionally reports left-sided neck pain developing today. Patient reports no fever, chills, or other systemic symptoms. Patient reports streaks of blood in vomit today. Patient reports no abdominal pain or diarrhea. Medication Reconciliation Allergies: Coded Allergies: No Known Allergies (Unverified , 01/01/22) Scheduled PRN ONDANSETRON ODT 4mg tablet (Ondansetron Odt), 1 TAB PO Q6H PRN PRN for nausea/vomiting Miscellaneous Medications Home Med List (No Home Medications), (Reported) Past Medical History Past Medical History: UTI Past Surgical History: no surgical history Alcohol Use: None Drug Use: none Lives with: Family Lives In: Home Occupation: student Review of Systems ROS Neck pain and swelling, and vomiting as stated above in the HPI, otherwise all systems are reviewed and negative. Physical Exam Vital Signs: Temperature: 98.4, Source: Oral, Heart Rate: 97, Respiratory Rate: 18, BP: 114/73, Pulse Oximetry: 99, Weight: 93.180 Oxygen Flow Rate: 0 Physical Exam VITALS: Reviewed and as above. GENERAL: Alert, nontoxic appearing, no apparent distress. HEENT: Right-sided cervical lymphadenopathy with a proximally 2 cm x 2 center mobile mass, tenderness to left neck without palpable lymph nodes, no facial swelling or erythema, PERRLA, EOMI, bilateral auditory canals clear nonerythematous, bilateral TMs clear nonbulging with normal light reflex RESPIRATORY: No increased work of breathing, no respiratory distress, speaking in full clear sentences, clear lung sounds in all anne CV: Regular rate and rhythm no murmur GI: Soft, nontender, no rebound, no guarding, bowel sounds present Progress Results/Orders Results/Orders Orders - DAKOTA MANNINGP Ct Neck Soft Tissues (03/15/25 21:00) Completed Orders - DAKOTA MANNING Ct Neck Soft Tissues (03/15/25 21:00) Iohexol 300mg/Ml 100ml Inj. (Omnipaque-3 (03/15/25 20:25) Ketorolac Trometh 15mg/Ml Vial (Toradol (03/15/25 23:10) Medications Received in ER Medications (Trade) Dose Ordered Sig/Mc Route PRN Reason Start Time Stop Time Status Last Admin Dose Admin (Toradol injection) 15 mg ONCE ONCE IM 03/15/25 23:10 03/15/25 23:11 DC 03/15/25 23:31 15 MG Vital Signs 03/15/25 03/15/25 03/15/25 03/15/25 16:20 19:52 19:54 23:31 Temp 98.4 98.4 Pulse 97 90 Resp 18 12 12 16 B/P (MAP) 114/73 123/63 (83) Pulse Ox 99 100 O2 Flow Rate 0 0 Laboratory Tests Test 03/15/25 17:58 03/15/25 18:06 White Blood Count 9.5 Red Blood Count 5.05 Hemoglobin 11.3 L Hematocrit 34.5 L Mean Corpuscular Volume 68.3 L Mean Corpuscular Hemoglobin 22.3 L Mean Corpuscular Hemoglobin Concent 32.6 L Red Cell Distribution Width 17.7 H Platelet Count 435 Mean Platelet Volume 6.7 L Neutrophils (%) (Auto) 68.0 Lymphocytes (%) (Auto) 24.6 Monocytes (%) (Auto) 5.7 Eosinophils (%) (Auto) 1.1 Basophils (%) (Auto) 0.6 Neutrophils # (Auto) 6.5 Lymphocytes # (Auto) 2.3 Monocytes # (Auto) 0.5 Eosinophils # (Auto) 0.1 Basophils # (Auto) 0.1 CBC Comment Platelet Estimate Normal Red Blood Cell Morphology Perf Basophilic Stippling Anisocytosis Few Microcytosis 1+ Sodium Level 142 Potassium Level 3.7 Chloride Level 107 Carbon Dioxide Level 24.2 Anion Gap 11 Blood Urea Nitrogen 6 L Creatinine 0.66 Estimated GFR/1.73 m2 > 90 BUN/Creatinine Ratio 9.1 L Glucose Level 94 Calcium Level 8.7 Magnesium Level 2.0 Albumin 3.3 L Chemistry Comments Urine Specimen Description Cln catch midstream Urine Color Yellow Urine Clarity Clear Urine pH 6.0 Urine Specific Jeffrey 1.025 Urine Protein Negative Urine Glucose (UA) Negative Urine Ketones Negative Urine Occult Blood Moderate H Urine Nitrite Negative Urine Bilirubin Negative Urine Urobilinogen 0.2 Urine Leukocyte Esterase Negative Urine RBC 3-10 Urine WBC 0-4 Urine Squamous Epithelial Cells Many Urine Bacteria 1+ Urine Mucus Many Urine Culture Indicated Not ind Volume Urine Centrifuged 10 ml Urine HCG, Qualitative Negative Urine Comment EKG/XRAY/CT/US/VASC/MRI CT : Impression COMPUTERIZED TOMOGRAPHY OF THE NECK WITH INTRAVENOUS CONTRAST CLINICAL HISTORY: Mass to right neck. Sore throat. Occasional vomiting. Right neck swelling present for 2 weeks. COMPARISON: None TECHNIQUE: The exam was performed on a multidetector scanner. Thin section spiral scans were acquired from the external auditory canals to the thoracic inlet during the bolus intravenous administration of contrast material. 2-D coronal and sagittal reformatted images were provided. Automated exposure control was used. LABS: Current laboratory values provided were reviewed or point of care testing was performed to verify the patient meets current departmental guidelines for contrast media administration per protocol. CONTRAST ADMINISTERED: 100 mL omnipaque 300, intravenously. MEDICATIONS: The patient's medication list was reviewed. RADIATION DOSE: CTDI: 18 mGy DLP: 440 mGy-cm FINDINGS: The airway is symmetric and patent. There is a 1.6 x 2.3 x 2.3 cm lobulated, heterogeneously enhancing solid mass in the superficial lobe of the right parotid gland. There are a few scattered subcentimeter lymph nodes in the anterior cervical chain. There are somewhat prominent bilateral level 2 lymph nodes, the largest of which measures 10 mm in short axis adjacent to the right carotid bifurcation. Visualized posterior fossa is unremarkable. Visualized thoracic apices are clear. The thyroid gland enhances homogeneously and appears grossly normal. No focal bony abnormality is identified. IMPRESSION: There is a 2.3 cm lobulated, heterogeneously enhancing solid mass in the superficial lobe of the right parotid gland. 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 Contrast-enhanced MRI of the face and mustapha gical consultation are recommended. Electronically Signed by:TEOFILO PEREZ MD Date & Time: 03/15/252210 Dictated by: TEOFILO PEREZ MD Dictation date and time: 03/15/252210 Ultrasound : Impression FOCUSED ULTRASOUND NECK SOFT TISSUES: REASON FOR EXAM: neck mass. Bilateral neck swelling. TECHNIQUE: Real-time sector scans in the transverse and longitudinal planes were obtained through both sides of the anterior neck. FINDINGS: Within the soft tissues of the right neck, deep to the strap muscles, there is a 2.1 x 1.6 by 2.1 cm lobulated hypoechoic mass with internal vascularity. There is a 1.0 by 1.0 by 0.7 cm morphologically normal lymph node in the left neck. The visualized portions of the thyroid gland are grossly unremarkable. IMPRESSION: Right neck mass, possibly lymphadenopathy. Correlate clinically. If clinically indicated, CT of the neck soft tissues with contrast is recommended. Electronically Signed by:TEOFILO PEREZ MD Date & Time: 03/15/251953 Dictated by: TEOFILO PEREZ MD Dictation date and time: 03/15/251953 Medical Decision Making Findings This 24-year-old female presented with pain and swelling to bilateral neck along with some episodes of vomiting over the last three days, ultrasound of the neck demonstrated vascular mass to the right neck and lymphadenopathy to the left nec k, mass to right neck was further explored with CT with contrast demonstrating lobulated mass to the parotid gland that is most consistent with pleomorphic adenoma, which will require MRI and surgical follow up. Patient is otherwise well-appearing with benign physical exam including no evidence of airway compromise and stable vital signs. Lab work without evidence of systemic infection, or metabolic or electrolyte disturbance. Patient is appropriate for outpatient follow up for MRI and surgical referral, patient has been directed to follow up 1st thing in the morning with primary care provider to make referrals to MRI and surgical consultation. Patient provided return to care precautions. Patient verbalized understanding of home care instructions, follow up instructions, and return to care precautions. Ear Diff. Dx: Considerations: Include: Foreign body, Otitis externa, Otitis media Tooth Diff. Dx: Considerations: Include: Facial cellulitis, Periapical abscess, Other (Pranav's angina) Throat Diff Dx: Considerations: Include: Pranav's angina Additional Comment Abscess, sepsis, infected lymph node, malignancy, salivary stone, parotitis Departure Disposition: 01 HOME / SELF CARE / HOMELESS Impression: Primary Impression: Mass of parotid gland Additional Impressions: Lymphadenopathy, anterior cervical Vomiting Qualified Codes: R11.2 - Nausea with vomiting, unspecified Condition: Improved Discharge Instructions: Lymphadenopathy Additional Instructions: Please use the prescribed Zofran if your vomiting should reoccur. As we discussed you will require prompt outpatient follow up for the mass in your parotid gland (salivary gland) to your right face, please contact your primary care provider 1st thing tomorrow morning letting them know that you were seen in the emergency department after receiving a CT recommending MRI and surgical follow up. Please return to the emergency department for any new or worsening concerning symptoms. You may use ibuprofen and or Tylenol as needed for pain as directed by [id number] packaging, do not take ibuprofen, naproxen, or other NSAIDs for the next 12 hours as you received a Toradol injection tonight. Take ibuprofen with food to avoid stomach upset. Referrals: NO PRIMARY CARE PROVIDER (PCP) Prescriptions ONDANSETRON ODT 4mg tablet (ONDANSETRON ODT) 4 Mg Tab.rapdis 1 TAB PO Q6H PRN PRN for nausea/vomiting for 4 Days, #16 TAB 0 Refills Prov: DAKOTA MANNING 03/15/25 Education Educated: Patient Educated regarding: diagnosis, treatment, prognosis, need for follow up Signature Scribe Signature: No scribe Attestation: The note accurately reflects work and decisions made by me.ANGI Goetz 03/16/25 01:05 DAKOTA MANNING Mar 15, 2025 18:15
[2025-03-15 18:22] LABS: ALBUMIN 3.3 G/DL (3.4-5.0); ANION GAP 11 (8-16); BLOOD UREA NITROGEN 6 MG/DL (7-18); BUN/CREATININE RATIO 9.1 (10.0-20.0); CALCIUM 8.7 MG/DL (8.5-10.1); CHLORIDE 107 MMOL/L (99-107); CREATININE 0.66 MG/DL (0.40-0.90); GLUCOSE 94 MG/DL (70-104); POTASSIUM 3.7 MMOL/L (3.5-5.1); SODIUM 142 MMOL/L (135-145); TOTAL CARBON DIOXIDE 24.2 MMOL/L (24-32); eCRCL 98 ML/MIN; eGFR > 90 ML/MIN
[2025-03-15 18:27] LABS: BASOPHILS # (AUTO) 0.1 X10'3 (0-0.2); BASOPHILS % (AUTO) 0.6 % (0-1); EOSINOPHILS # (AUTO) 0.1 X10'3 (0-0.9); EOSINOPHILS % (AUTO) 1.1 % (0-6); HEMATOCRIT 34.5 % (35.0-45.0); HEMOGLOBIN 11.3 g/dl (12.0-16.0); LYMPHOCYTES # (AUTO) 2.3 X10'3 (1.1-4.8); LYMPHOCYTES % (AUTO) 24.6 % (21-51); MEAN CORPUSCULAR HEMOGLOBIN 22.3 PG (27.0-31.0); MEAN CORPUSCULAR HGB CONC 32.6 g/dL (33.0-36.5); MEAN CORPUSCULAR VOLUME 68.3 FL (78-98); MEAN PLATELET VOLUME 6.7 FL (7.4-10.4); MONOCYTES # (AUTO) 0.5 X10'3 (0-0.9); MONOCYTES % (AUTO) 5.7 % (2-12); NEUTROPHILS # (AUTO) 6.5 X10'3 (1.8-7.7); PLATELET COUNT 435 X10'3 (140-440); RED BLOOD COUNT 5.05 X10'6 (4.20-5.60); RED CELL DISTRIBUTION WIDTH 17.7 % (11.5-14.5); WHITE BLOOD COUNT 9.5 X10'3 (4.5-11.0)
[2025-03-15 19:01] LABS: BILIRUBIN,URINE NEGATIVE (Neg); CLARITY,URINE CLEAR (Clear); COLOR,URINE YELLOW (Yellow); GLUCOSE, URINE NEGATIVE (Neg); KETONES,URINE NEGATIVE (Neg); LEUKOCYTE ESTERASE ,URINE NEGATIVE (Neg); NITRITES, URINE NEGATIVE (Neg); OCCULT BLOOD,URINE MODERATE (Neg); PROTEIN,URINE NEGATIVE (Neg); UROBILINOGEN,URINE 0.2 E.U/dL (0.2-1.0)
[2025-03-15 19:02] LABS: URINE HCG NEGATIVE (NEG)
[2025-03-15 19:07] LABS: UA COLLECTION TYPE CLN CATCH MIDSTREAM
[2025-03-15 19:17] LABS: MUCUS STRANDS MANY /LPF (Neg); WBC,URINE 0-4 /HPF (0-4)
[2025-03-15 19:18] LABS: BACTERIA,URINE 1+ /HPF (Neg); SQUAMOUS EPITHELIAL CELL,UR MANY /LPF (FEW)
[2025-03-15 19:34] LABS: MICROCYTOSIS 1+; PLATELET ESTIMATE NORMAL
[2025-03-15 19:35] LABS: ANISOCYTOSIS FEW
[2025-03-15 19:54] VITALS: BP 123/63; PULSE 90; TEMP 98.4; O2SAT 100
--- NOTE | 2025-03-15 19:56 | RADIOLOGY REPORT ---
FOCUSED ULTRASOUND NECK SOFT TISSUES: REASON FOR EXAM: neck mass. Bilateral neck swelling. TECHNIQUE: Real-time sector scans in the transverse and longitudinal planes were obtained through quinton th sides of the anterior neck. FINDINGS: Within the soft tissues of the right neck, deep to the strap muscles, there is a 2.1 x 1.6 by 2.1 cm lobulated hypoechoic mass with internal vascularity. There is a 1.0 by 1.0 by 0.7 cm morp hologically normal lymph node in the left neck. The visualized portions of the thyroid gland are yoan sly unremarkable. IMPRESSION: Right neck mass, possibly lymphadenopathy. Correlate clinically. If clinically indicated, CT of the neck soft tissues with contrast is recommended.
[2025-03-15] MEDS ORDERED: iohexol 300mg/ml 100ml inj. ONE (20:25)
--- NOTE | 2025-03-15 22:14 | RADIOLOGY REPORT ---
COMPUTERIZED TOMOGRAPHY OF THE NECK WITH INTRAVENOUS CONTRAST CLINICAL HISTORY: Mass to right neck. Sore throat. Occasional vomiting. Right neck swelling present for 2 weeks. COMPARISON: None TECHNIQUE: The exam was performed on a multidetector scanner. Thin section spiral scans were acqui red from the external auditory canals to the thoracic inlet during the bolus intravenous administrati on of contrast material. 2-D coronal and sagittal reformatted images were provided. Automated expos ure control was used. LABS: Current laboratory values provided were reviewed or point of care testing was performed to angelito rush the patient meets current departmental guidelines for contrast media administration per protocol. CONTRAST ADMINISTERED: 100 mL omnipaque 300, intravenously. MEDICATIONS: The patient's medication list was reviewed. RADIATION DOSE: CTDI: 18 mGy DLP: 440 mGy-cm FINDINGS: The airway is symmetric and patent. There is a 1.6 x 2.3 x 2.3 cm lobulated, heterogen eously enhancing solid mass in the superficial lobe of the right parotid gland. There are a few scatt ered subcentimeter lymph nodes in the anterior cervical chain. There are somewhat prominent bilateral level 2 lymph nodes, the largest of which measures 10 mm in short axis adjacent to the right carotid bifurcation. Visualized posterior fossa is unremarkable. Visualized thoracic apices are clear. The thyroid gland enhances homogeneously and appears grossly normal. No focal bony abnormality is identif ied. IMPRESSION: There is a 2.3 cm lobulated, heterogeneously enhancing solid mass in the superficial lobe of the righ t parotid gland. 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 Contrast-enhan rachel MRI of the face and surgical consultation are recommended.
[2025-03-15] MEDS ORDERED: ONDA-243 PO (23:04)
[2025-03-15 23:31] VITALS: RESP 16
[2025-03-15] MEDS: ketorolac trometh 15mg/ml vial 15 MG/ML ML IM ONE (23:31)
== END 2025-03-15 23:46 | disposition home or self-care (01) ==
LOC: ER 16:09
DX: R59.1 Generalized enlarged lymph nodes (principal); R11.10 Vomiting, unspecified
CPT/HCPCS: 36415; 70491; 76881; 80048; 81001; 81025; 83735; 85025; 96372; 99285; J1885; Q9967; 85008

== ENCOUNTER 2025-07-18 20:21 | Emergency (ER) | payer MEDICAID ==
[~2025-07-18] VITALS: Ht 154.9 cm; Wt 100.0 kg
[~2025-07-18 20:21] MED LIST changes: +ONDA-243 PO
[2025-07-18 21:14] LABS: MEAN PLATELET VOLUME 6.9 FL (7.4-10.4); RED CELL DISTRIBUTION WIDTH 17.0 % (11.5-14.5)
[2025-07-18 21:19] LABS: CREATININE 0.71 MG/DL (0.40-0.90); TOTAL CARBON DIOXIDE 21.5 MMOL/L (24-32); eCRCL 91 ML/MIN; eGFR > 90 ML/MIN
[2025-07-18 21:44] LABS: PLATELET ESTIMATE NORMAL
--- NOTE | 2025-07-18 21:49 | Physician Documentation ---
History of Present Illness General Chief Complaint: Post-operative complication Stated Complaint: POST OP COMPLICATIONS Time Seen by MD: 20:54 Primary Medical Doctor: [facility] MD Persaud Mode of Arrival: POV, Ambulatory History of Present Illness Initial Comments 24-year-old female status post benign tumor excision from the right jaw. Reports she has had some post operative complications to include abscesses requiring incision and drainage. Most recent incision and drainage was 10 days ago for which she was admitted. Discharged from [facility] three days later and placed on outpatient antibiotics. Seen in the ENT in clinic Saturday and had packing removed. Reports she continues to have drainage. Had fever yesterday that has since resolved and continues to take her Augmentin. No dysphagia, shortness of breath, or decreased appetite. Medication Reconciliation Allergies: Coded Allergies: No Known Allergies (Unverified , 01/01/22) Scheduled PRN ONDANSETRON ODT 4mg tablet (Ondansetron Odt), 1 TAB PO Q6H PRN PRN for nausea/vomiting Miscellaneous Medications Home Med List (No Home Medications), (Reported) Past Medical History Past Medical History: UTI Past Surgical History: no surgical history Smoking: Non-Smoker Alcohol Use: None Drug Use: none Lives with: Family Lives In: Home Occupation: student Review of Systems All Other Systems at this time: Reviewed and Negative Constitutional: Reports: fever; Denies: chills HENT: Reports: ear pain; Denies: throat pain ENT Right jaw pain Integ: Denies: rash Physical Exam Physical Exam Vital Signs: RN Vital Signs have been reviewed: Yes, Temperature: 97.8, Heart Rate: 98, Respiratory Rate: 18, BP: 144/101, Pulse Oximetry: 98, Weight: 100.000 General Appearance: alert, WD/WN, mild distress Head: normal inspection Face: swelling Face Mild right-sided facial swelling with loss of symmetry without obvious abscess she had mild induration pre auricle. No submental elevation, oral pharynx unrem arkable. Small posterior auricle incision with dried discharge at the wound edges. Ear: swelling, tenderness Nose: normal inspection Neck: non-tender, full range of motion Respiratory: no respiratory distress Extremities: normal range of motion Neurologic: oriented x4, distribution technician II-XII nml as tested Motor / Sensory: no motor deficit Psychiatric: normal mood/affect Skin: normal color, warm/dry Progress Results/Orders Results/Orders Vital Signs 07/18/25 07/18/25 20:28 20:58 Temp 97.8 Pulse 98 Resp 18 18 B/P (MAP) 144/101 Pulse Ox 98 Laboratory Tests Test 07/18/25 20:58 White Blood Count 7.2 Red Blood Count 4.85 Hemoglobin 10.9 L Hematocrit 33.2 L Mean Corpuscular Volume 68.5 L Mean Corpuscular Hemoglobin 22.5 L Mean Corpuscular Hemoglobin Concent 32.9 L Red Cell Distribution Width 17.0 H Platelet Count 335 Mean Platelet Volume 6.9 L Neutrophils (%) (Auto) 70.7 Lymphocytes (%) (Auto) 22.2 Monocytes (%) (Auto) 4.6 Eosinophils (%) (Auto) 1.6 Basophils (%) (Auto) 0.9 Neutrophils # (Auto) 5.1 Lymphocytes # (Auto) 1.6 Monocytes # (Auto) 0.3 Eosinophils # (Auto) 0.1 Basophils # (Auto) 0.1 CBC Comment Basophilic Stippling Sodium Level 139 Potassium Level 4.2 Chloride Level 106 Carbon Dioxide Level 21.5 L Anion Gap 12 Blood Urea Nitrogen 8 Creatinine 0.71 Estimated GFR/1.73 m2 > 90 BUN/Creatinine Ratio 11.3 Glucose Level 218 H Lactic Acid Level 2.0 Calcium Level 8.1 L Albumin 3.2 L Procalcitonin < 0.05 Chemistry Comments Medical Decision Making Additional information obtaine: old records Findings Examination consistent with status post incision and drainage with packing removal not requiring extension of incision or IV antibiotics. Patient to continue with oral antibiotics and pain medication. Mild facial cellulitis secondary to current infection without consideration of angioedema and/or Pranav's angina. Labs are reassuring other than noted anemia and elevated blood sure there are likely chronic. No further intervention indicated. Patient is stable for safe discharge and follow up in ENT clinic tomorrow. Differential Diagnosis Differentials include, unresolved abscess, mastoiditis, acute otitis externa, seroma, facial cellulitis, Pranav's angina and less likely angioedema. Departure Disposition: HOME / SELF CARE / HOMELESS Impression: Primary Impression: Facial cellulitis Additional Impression: Patient incision drainage right jaw Condition: Improved Additional Instructions: Please continue with the current antibiotics and pain medication as directed by ENT specialist. Make follow up appointment in the morning for repeated evaluation with the ENT. Thank you for visiting emergency department [facility]. Referrals: NO PRIMARY CARE PROVIDER (PCP) Education Educated: Patient Educated regarding: diagnosis Signature Scribe Signature: . Attestation: . MARKOS TAYLOR [facility] Jul 18, 2025 21:49
[2025-07-18 21:58] VITALS: BP 140/92; PULSE 96; RESP 20; TEMP 98.6; O2SAT 99
== END 2025-07-18 21:59 | disposition home or self-care (01) ==
LOC: ER 20:21
DX: L03.211 Cellulitis of face (principal); Z87.440 Personal history of urinary (tract) infections
CPT/HCPCS: 36415; 80048; 83605; 84145; 85008; 85025; 87040; 99283